=== PATIENT | male | born 1940 | race Caucasian/White ===

== ENCOUNTER 2019-06-19 16:47 | Inpatient (IN) | payer MEDICARE, BC ==
--- NOTE | 2019-06-19 17:36 | CT ---
[id number] CT/CT Head WO IV EXAM: CT Head WO IV CLINICAL DATA: TRAUMA COMPARISON: NO PREVIOUS SIMILAR EXAM IS AVAILABLE FOR COMPARISON. FINDINGS: There is no mass or mass effect. There is no hemorrhage or hydrocephalus. There are no extra-axial fluid collections. There are no sites of abnormal attenuation. IMPRESSION: NO PLAIN CT EVIDENCE OF ACUTE INTRACRANIAL PROCESS. Brett Proctor MD 06/19/19 [id number] Thank you for allowing us to participate in the care of your patient.
--- NOTE | 2019-06-19 17:37 | CT ---
[id number] CT/CT Cervical Spine WO IV Exam: CT Cervical Spine WO IV Clinical Data: TRAUMA COMPARISON: NO PREVIOUS SIMILAR EXAM IS AVAILABLE FINDINGS: No fracture or subluxation is seen There are degenerative changes There are changes suggestive of diffuse idiopathic skeletal hyperostosis The prevertebral soft tissues are unremarkable There is a sebaceous cyst at the level of the occiput IMPRESSION: NO FRACTURE OR SUBLUXATION Brett Proctor MD 06/19/19 [id number] Thank you for allowing us to participate in the care of your patient.
--- NOTE | 2019-06-19 17:40 | EDM.PDOC ---
ED HPI GENERAL MEDICAL PROBLEM - General Chief Complaint: General Stated Complaint: Frequent falls Time Seen by Provider: 06/19/19 17:10 Source of Information: Reports: EMS, Provider History Limitations: Reports: Other (profound dementia) - History of Present Illness INITIAL COMMENTS - FREE TEXT/NARRATIVE: 79 YO WM presents from the [place] by EMS secondary to frequent falls. NH reports pt fell twice over the last 3 days and there was some concern that patient my have hit his head and NH is questioning some change in his mental status. Pt has profound dementia and baseline mental status is difficult to obtain. GCS-15, pt is alert and oriented to self. Pt denies any pain at this time but upon transfer to ER bed he complained of some neck discomfort with rotation. Pt is afebrile, no cough or congestion, no nausea/vomiting. Pt denies chest pain or shortness of breath. Pt able to stand on transfer. Pt without facial droop, slurred speech or pronator drift. Onset: Unknown/Unsure Duration: Chronic, Recurring Location: Reports: Head, Neck Quality: Reports: Ache Severity: Mild Improves with: Reports: Rest Worsens with: Reports: Movement Associated Symptoms: Reports: No Other Symptoms, Weakness. Denies: Chest Pain, Cough, Fever/Chills, Nausea/Vomiting, Rash, Seizure, Shortness of Breath - Related Data Allergies Allergy/AdvReac Type Severity Reaction Status Date / Time No Known Allergies Allergy Verified 04/12/18 11:51 Home Meds: Home Meds Amitriptyline [Elavil] 50 mg PO BEDTIME 08/30/16 [History] Benazepril HCl [Lotensin] 40 mg PO DAILY 08/30/16 [History] Carvedilol [Coreg] 6.25 mg PO BID 08/30/16 [History] Citalopram [Celexa] 20 mg PO DAILY 08/30/16 [History] Cyanocobalamin (Vitamin B-12) [Vitamin B-12] 1,000 mcg PO DAILY 08/30/16 [ History] LORazepam 1 mg PO BEDTIME PRN 08/30/16 [History] amLODIPine [Norvasc] 5 mg PO DAILY 08/30/16 [History] buPROPion [Wellbutrin XL] 150 mg PO DAILY 08/30/16 [History] metFORMIN HCl [Metformin HCl] 500 mg PO BID 08/30/16 [History] Folic Acid 1 mg PO DAILY 01/25/17 [History] Betamethasone/Propylene Glyc [Betamethasone DP Aug 0.05%] 1 applic TOP BID 11/21 [History] Methotrexate 15 mg PO WEEKLY 11/21/17 [History] Simvastatin [Zocor] 40 mg PO BEDTIME 11/21/17 [History] Betamethasone/Propylene Glyc [Diprolene 0.05%] 1 applic TOP BID PRN 12/08/17 [ History] Clobetasol [Clobetasol 0.05%] 1 applic TOP BID PRN 12/08/17 [History] Cooke Tar [T-Gel] 1 applic TOP ASDIRECTED 12/08/17 [History] Ketoconazole [Nizoral 2% Crm] 1 applic TOP ASDIRECTED 12/08/17 [History] Zolpidem Tartrate [Ambien] 5 mg PO BEDTIME 12/08/17 [History] Donepezil [Aricept] 5 mg PO BEDTIME 04/12/18 [History] Nitrofurantoin Macrocrystal [Macrodantin] 100 mg PO BID 04/12/18 [History] Past Medical History - Past Health History Medical/Surgical History: Denies Medical/Surgical History HEENT History: Reports: Cataract, Impaired Vision Cardiovascular History: Reports: CAD, High Cholesterol, Hypertension Other Cardiovascular History: patient was told he had 2 mild heart attacks, but patient was not aware; no symptoms were felt. Respiratory History: Reports: SOB, Other (See Below) Other Respiratory History: wheezing Gastrointestinal History: Reports: Colon Polyp Genitourinary History: Reports: None Musculoskeletal History: Reports: Gout Neurological History: Reports: Other (See Below) Other Neuro History: insomnia Psychiatric History: Reports: Anxiety, Depression Endocrine/Metabolic History: Reports: Diabetes, Type II, Obesity/BMI 30+ Hematologic History: Reports: B12 Deficiency Immunologic History: Reports: None Oncologic (Cancer) History: Reports: None Dermatologic History: Reports: Psoriasis - Infectious Disease History Infectious Disease History: Reports: Mumps - Past Surgical History Head Surgeries/Procedures: Reports: None HEENT Surgical History: Reports: None, Cataract Surgery Cardiovascular Surgical History: Reports: Other (See Below) Other Cardiovascular Surgeries/Procedures: left heart cardiac cath. angiogram 2004 Male Surgical History: Reports: None Endocrine Surgical History: Reports: None Social & Family History - Family History Family Medical History: Noncontributory Cardiac: Reports: High Cholesterol, Hypertension Musculoskeletal: Reports: Arthritis Neurological: Reports: CVA - Caffeine Use Caffeine Use: Reports: Coffee, Tea Caffeine Use Comment: occassional tea, soda and coffee - Living Situation & Occupation Living situation: Reports: Alone Occupation: Retired ED ROS GENERAL - Review of Systems Review Of Systems: See Below Constitutional: Reports: Weakness HEENT: Reports: No Symptoms Respiratory: Reports: No Symptoms Cardiovascular: Reports: No Symptoms Endocrine: Reports: No Symptoms GI/Abdominal: Reports: No Symptoms : Reports: No Symptoms Musculoskeletal: Reports: No Symptoms Skin: Reports: No Symptoms Neurological: Reports: Weakness Psychiatric: Reports: No Symptoms Hematologic/Lymphatic: Reports: No Symptoms Immunologic: Reports: No Symptoms ED EXAM, GENERAL - Physical Exam Exam: See Below Exam Limited By: Other (profound dementia) General Appearance: Alert, WD/WN, No Apparent Distress Eye Exam: Bilateral Eye: EOMI, PERRL Nose: Normal Inspection, Normal Mucosa, No Blood Throat/Mouth: Normal Inspection, Normal Lips, Normal Teeth, Normal Gums, Normal Oropharynx, Normal Voice, No Airway Compromise Head: Atraumatic, Normocephalic Neck: Normal Inspection, Supple, Non-Tender, Other Respiratory/Chest: No Respiratory Distress, Lungs Clear, Normal Breath Sounds, No Accessory Muscle Use, Chest Non-Tender Cardiovascular: Normal Peripheral Pulses, Regular Rate, Rhythm, No Edema, No Gallop, No JVD, No Murmur, No Rub GI/Abdominal: Normal Bowel Sounds, Soft, Non-Tender, No Organomegaly, No Distention, No Abnormal Bruit, No Mass Extremities: Normal Inspection, Normal Range of Motion, Non-Tender, Normal Capillary Refill, No Pedal Edema Neurological: Alert, CN II-XII Intact, Normal Gait, Normal Reflexes, No Motor/ Sensory Deficits Psychiatric: Normal Affect, Normal Mood Skin Exam: Warm, Dry, Intact, Normal Color, No Rash Lymphatic: No Adenopathy EKG INTERPRETATION EKG Date: 06/19/19 Time: 17:25 Rhythm: NSR Rate (Beats/Min): 68 [place]: Normal P-Wave: Present QRS: Normal ST-T: Normal QT: Normal Course - Vital Signs Last Recorded V/S: Last Vital Signs Temp 36.2 C 06/19/19 17:35 Pulse 69 02/18/20 17:35 Resp 26 H 06/19/19 17:35 BP 110/41 L 06/19/19 17:35 Pulse Ox 93 L 06/19/19 17:35 - Orders/Labs/Meds Orders: Active Orders 24 hr Category Date Time Status EKG Documentation Completion [RC] ASDIRECTED Care 06/19/19 16:59 Active CULTURE BLOOD [BC] Stat Lab 06/19/19 18:00 Received CULTURE BLOOD [BC] Stat Lab 06/19/19 18:10 Received Blood Culture x2 Reflex Set [OM.PC] Stat Oth 06/19/19 17:55 Ordered EKG 12 Lead [EK] Routine Ther 06/19/19 16:56 Ordered Labs: Laboratory Tests 06/19/19 06/19/19 06/19/19 Range/Units 17:10 17:10 17:20 WBC 20.19 H (5.00-10.00) 10^3/uL RBC 3.58 L (4.50-6.00) 10^6/uL Hgb 11.5 L (13.0-17.0) g/dL Hct 34.6 L (40.0-52.0) % MCV 96.6 H (82.0-92.0) fL MCH 32.1 H (27.0-31.0) pg MCHC 33.2 (32.0-36.0) g/dL RDW 14.4 (11.5-14.5) % Plt Count 285 (150-400) 10^3/uL MPV 9.5 (7.4-10.4) fL Immature Gran % (Auto) 0.2 (0.0-5.0) % Neut % (Auto) 74.3 H (50.0-70.0) % Lymph % (Auto) 13.2 L (20.0-40.0) % Bertie % (Auto) 9.0 H (2.0-8.0) % Eos % (Auto) 3.1 H (1.0-3.0) % Baso % (Auto) 0.2 (0.0-1.0) % Immature Gran # (Auto) 0.04 (0.00-0.50) 10^3/uL Neut # (Auto) 15.00 H (2.50-7.00) 10^3/uL Lymph # (Auto) 2.67 (1.00-4.00) 10^3/uL Bertie # (Auto) 1.82 H (0.10-0.80) 10^3/uL Eos # (Auto) 0.62 H (0.10-0.30) 10^3/uL Baso # (Auto) 0.04 (0.00-0.10) 10^3/uL Sodium 147 H (136-145) mmol/L Potassium 4.3 (3.3-5.3) mmol/L Chloride 104 (98-115) mmol/L Carbon Dioxide 30.1 (21.0-32.0) mmol/L Anion Gap 17.2 H (5-15) mmol/L BUN 33 H (6-25) mg/dL Creatinine 0.83 (0.51-1.17) mg/dL Est Cr Clr Drug Dosing 72.07 mL/min Estimated GFR (MDRD) > 60 mL/min Glucose 108 H (75 - 99) mg/dL Lactic Acid 1.3 (0.4-2.0) mmol/L Calcium 8.5 L (8.7-10.3) mg/dL Total Bilirubin 1.3 H (0.2-1.0) mg/dL AST 20 (15-37) U/L ALT 19 (12-78) U/L Alkaline Phosphatase 107 (46-116) IU/L Creatine Kinase 48 (26-276) U/L CK-MB (CK-2) 1.40 (0.00-4.30) ng/mL Troponin I 0.06 (0.00-0.070) ng/mL Total Protein 6.2 L (6.4-8.2) g/dL Albumin 2.73 L (3.00-4.80) g/dL Specimen Type Urine Color (YELLOW) Urine Appearance (CLEAR) Urine pH (5.0-9.0) Ur Specific [place] (1.005-1.030) Urine Protein (NEGATIVE) mg/dL Urine Glucose (UA) (NEGATIVE) mg/dL Urine Ketones (NEGATIVE) mg/dL Urine Occult Blood (NEGATIVE) Urine Nitrite (NEGATIVE) Urine Bilirubin (NEGATIVE) Urine Urobilinogen (0.2-1.0) E.U./dL Ur Leukocyte Esterase (NEGATIVE) Urine RBC (0-5) /HPF Urine WBC (0-5) /HPF Urine Bacteria (NONE TO FEW) /HPF 06/19/19 Range/Units 17:58 WBC (5.00-10.00) 10^3/uL RBC (4.50-6.00) 10^6/uL Hgb (13.0-17.0) g/dL Hct (40.0-52.0) % MCV (82.0-92.0) fL MCH (27.0-31.0) pg MCHC (32.0-36.0) g/dL RDW (11.5-14.5) % Plt Count (150-400) 10^3/uL MPV (7.4-10.4) fL Immature Gran % (Auto) (0.0-5.0) % Neut % (Auto) (50.0-70.0) % Lymph % (Auto) (20.0-40.0) % Bertie % (Auto) (2.0-8.0) % Eos % (Auto) (1.0-3.0) % Baso % (Auto) (0.0-1.0) % Immature Gran # (Auto) (0.00-0.50) 10^3/uL Neut # (Auto) (2.50-7.00) 10^3/uL Lymph # (Auto) (1.00-4.00) 10^3/uL Bertie # (Auto) (0.10-0.80) 10^3/uL Eos # (Auto) (0.10-0.30) 10^3/uL Baso # (Auto) (0.00-0.10) 10^3/uL Sodium (136-145) mmol/L Potassium (3.3-5.3) mmol/L Chloride (98-115) mmol/L Carbon Dioxide (21.0-32.0) mmol/L Anion Gap (5-15) mmol/L BUN (6-25) mg/dL Creatinine (0.51-1.17) mg/dL Est Cr Clr Drug Dosing mL/min Estimated GFR (MDRD) mL/min Glucose (75 - 99) mg/dL Lactic Acid (0.4-2.0) mmol/L Calcium (8.7-10.3) mg/dL Total Bilirubin (0.2-1.0) mg/dL AST (15-37) U/L ALT (12-78) U/L Alkaline Phosphatase (46-116) IU/L Creatine Kinase (26-276) U/L CK-MB (CK-2) (0.00-4.30) ng/mL Troponin I (0.00-0.070) ng/mL Total Protein (6.4-8.2) g/dL Albumin (3.00-4.80) g/dL Specimen Type Urincc Urine Color Yellow (YELLOW) Urine Appearance Turbid H (CLEAR) Urine pH 6.0 (5.0-9.0) Ur Specific [place] 1.020 (1.005-1.030) Urine Protein 30 H (NEGATIVE) mg/dL Urine Glucose (UA) Negative (NEGATIVE) mg/dL Urine Ketones Negative (NEGATIVE) mg/dL Urine Occult Blood Trace-intact H (NEGATIVE) Urine Nitrite Negative (NEGATIVE) Urine Bilirubin Negative (NEGATIVE) Urine Urobilinogen 1.0 (0.2-1.0) E.U./dL Ur Leukocyte Esterase Negative (NEGATIVE) Urine RBC 0-5 (0-5) /HPF Urine WBC 0-5 (0-5) /HPF Urine Bacteria Occasional (NONE TO FEW) /HPF - Radiology Interpretation Free Text/Narrative:: CT head- NAD CT cervical- No fx or subluxation CXR- left 8th rib fracture; mild pleural reaction at left lung base which may represent pneumonia - Re-Assessments/Exams Free Text/Narrative Re-Assessment/Exam: 06/19/19 18:[address] Basihr who accepted patient. Will treat with gentle fluid hydration, pain control, and suspected LLL pneumonia. Instructed to continue home medications but hold ambien and lorazapam. Departure - Departure Time of Disposition: 18:36 Disposition: Admitted As Inpatient 64 Condition: Fair Clinical Impression: Frequent falls Rib fracture Qualifiers: Encounter type: initial encounter Rib fracture type: single rib Fracture type: closed Laterality: left Qualified Code(s): S22.32XA - Fracture of one rib, left side, initial encounter for closed fracture Pneumonia Qualifiers: Pneumonia type: due to unspecified organism Laterality: left Lung location: lower lobe of lung Qualified Code(s): J18.9 - Pneumonia, unspecified organism Leukocytosis Qualifiers: Leukocytosis type: unspecified Qualified Code(s): D72.829 - Elevated white blood cell count, unspecified - Discharge Information Referrals: Hemalatha Everett MD [Primary Care Provider] - Forms: ED Department Discharge Sepsis Event Note - Focused Exam Vital Signs: Vital Signs Temp Pulse Resp BP Pulse Ox 06/19/19 17:35 36.2 C 69 26 H 110/41 L 93 L Date Exam was Performed: 06/19/19 Time Exam was Performed: 18:38 - My Orders Last 24 Hours: My Active Orders 06/19/19 16:56 EKG 12 Lead [EK] Routine 06/19/19 16:59 EKG Documentation Completion [RC] ASDIRECTED 06/19/19 17:55 Blood Culture x2 Reflex Set [OM.PC] Stat 06/19/19 18:00 CULTURE BLOOD [BC] Stat 06/19/19 18:10 CULTURE BLOOD [BC] Stat - Assessment/Plan Last 24 Hours: My Active Orders 06/19/19 16:56 EKG 12 Lead [EK] Routine 06/19/19 16:59 EKG Documentation Completion [RC] ASDIRECTED 06/19/19 17:55 Blood Culture x2 Reflex Set [OM.PC] Stat 06/19/19 18:00 CULTURE BLOOD [BC] Stat 06/19/19 18:10 CULTURE BLOOD [BC] Stat Assessment:: 1. left 8th rib fracture from fall 2. leukocytosis without signs of sepsis 3. suspect LLL pneumonia Plan: 1. admit to medicine- Dr Bashir 2.
--- NOTE | 2019-06-19 17:43 | CR ---
[id number] RAD/RAD Chest PA And Lateral EXAM: RAD Chest PA And Lateral CLINICAL DATA: TRAUMA COMPARISON: NO PREVIOUS SIMILAR EXAM IS AVAILABLE. FINDINGS: There appears to mild pleural reaction at the left lung base There is no pneumothorax There is mild volume loss at the left lung base There appears to be a slightly displaced fracture of the left seventh rib posteriorly There is question of a recent fracture of the left eighth rib The cardiac silhouette is mildly prominent IMPRESSION: LOWER LEFT RIB FRACTURES VOLUME LOSS AND PLEURAL REACTION LEFT LUNG BASE NO PNEUMOTHORAX CONSIDER FURTHER STUDIES IF NEEDED Brett Proctor MD 06/19/19 0681 Thank you for allowing us to participate in the care of your patient.
[2019-06-19 17:48] LABS: ANION GAP 17.2 mmol/L (5-15); CHLORIDE,CL 104 mmol/L (98-115); SODIUM,NA 147 mmol/L (136-145)
[2019-06-19] MEDS ORDERED: Acetaminophen 325 MG Tab PO PRN ×2 (18:40→22:13)
[2019-06-19] MEDS ORDERED: Ondansetron 4 MG/2 ML SDV IV PRN (18:40)
[2019-06-19] MEDS ORDERED: Sodium Chloride 0.9% 10 ML Syringe FLUSH PRN (18:40)
[2019-06-19] MEDS ORDERED: cefTRIAXone 1 GM Vial IVPUSH SCH (18:45)
[2019-06-19] MEDS: Morphine 2 MG/ML Syringe IVPUSH PRN (20:18)
[2019-06-19] MEDS: Sodium Chloride 0.9% 1,000 ML IV SCH (20:42)
[2019-06-19] MEDS: Melatonin 3 MG Tab PO SCH (20:59)
[2019-06-19] MEDS ORDERED: Docusate Sodium 100 MG Cap PO PRN (22:13)
[2019-06-19] MEDS: Acetaminophen/HYDROcodone 325-5 MG Tab PO PRN (22:28)
[2019-06-19] MEDS ORDERED: [UNRECOGNIZED DRUG - OTHER] TP SCH (22:30)
[2019-06-19] MEDS: Albuterol/Ipratropium 3.0-0.5 MG/3 ML Neb Soln NEB SCH (22:39)
[2019-06-19] MEDS ORDERED: Morphine 2 MG/ML Syringe IVPUSH ONE (23:00)
[2019-06-19] MEDS ORDERED: LORazepam 0.5 MG Tab PO PRN (23:01)
[2019-06-20] MEDS: Morphine 2 MG/ML Syringe IVPUSH PRN ×3 (03:13→20:39)
[2019-06-20] MEDS: Albuterol/Ipratropium 3.0-0.5 MG/3 ML Neb Soln NEB SCH ×3 (05:54→17:23)
[2019-06-20] MEDS ORDERED: LORazepam 0.5 MG Tab PO PRN ×2 (07:52→18:19)
[2019-06-20] MEDS: Sodium Chloride 0.9% 1,000 ML IV SCH ×2 (08:04→21:56)
[2019-06-20 08:12] LABS: ANION GAP 14.3 mmol/L (5-15); CHLORIDE,CL 106 mmol/L (98-115); SODIUM,NA 144 mmol/L (136-145)
[2019-06-20] MEDS ORDERED: metFORMIN 500 MG Tab PO SCH (09:00)
[2019-06-20] MEDS ORDERED: amLODIPine 5 MG Tab PO SCH (09:00)
[2019-06-20] MEDS ORDERED: Carvedilol 12.5 MG Tab PO SCH (09:00)
[2019-06-20] MEDS ORDERED: LORazepam 2 MG/ML SDV IVPUSH ONE (09:49)
[2019-06-20] MEDS ORDERED: Bisacodyl 10 MG Supp RECTAL ONE (10:40)
[2019-06-20 10:51] LABS: HEMOGLOBIN A1C 5.9 % (4.3-5.7)
[2019-06-20] MEDS: Multivitamins with Minerals/Iron/Folic Acid/Lycopene Tab PO SCH (11:19)
[2019-06-20] MEDS: Folic Acid 1 MG Tab PO SCH (11:20)
[2019-06-20] MEDS: Cyanocobalamin (Vitamin B12) 500 MCG Tab PO SCH (11:20)
[2019-06-20] MEDS: Gabapentin 100 MG Cap PO SCH ×2 (11:20→20:55)
[2019-06-20] MEDS ORDERED: Bisacodyl 10 MG Supp RECTAL PRN (11:35)
[2019-06-20] MEDS: Lidocaine 5% 700 MG Patch TOP SCH (12:00)
--- NOTE | 2019-06-20 12:08 | PCM.HP.2 ---
H&P History of Present Illness - General Date of Service: 06/20/19 Admit Problem/Dx: Admission Diagnosis/Problem Admission Diagnosis/Problem Pneumonia Source of Information: Patient, Family, Senior Care Records, Old Records, Provider, RN, RN Notes Reviewed History Limitations: Reports: Altered Mental Status (dementia) - History of Present Illness Initial Comments - Free Text/Narative: 79yoM with hx notable for dementia who has most recently been residing at [facility] in [place], [place]. He has had increasing recurrent falls for the past many months. [facility] [facility] contacted [facility] provider LJ Veloz CNP, with report of generalized weakness and possible facial droop, which they were unsure if was a change from baseline. Falls were noted to be ongoing, with the most recent known on 06/18/19. He was transported to the [facility] ED for further evaluation. In the ED, he was noted to have a GCS = 15, but only oriented to self. He denied pain initially. Labs with CBC, CMP, troponin, lactate, and UA were notable for WBC 20 with 74% neutrophils, Na 147, and bilirubin 1.3, and otherwise stable or wnl. CT head and cervical spine were without abnormalities. CXR noted to have L 7th and 8th rib fractures and LLL pleural reaction. outbound call center representative physician was called for admission and began IVF with NS at 100cc/hr, IV antibiotics with vancomycin and ceftriaxone, and pain management with baseline Tylenol and [place] with prn morphine for severe breakthrough pain. This morning, he has been quite agitated, thought by nursing to partially be induced by construction occurring in the adjacent room. On rounds, he is oriented to self and intermittently answers yes/no questions appropriately, but otherwise is unable to provide reliable history. Nursing reports that he hasn't had a BM since 06/15/19. Discussed care with daughter who reports longstanding recurrent falls over the past several months as well as progressive memory loss and agitation which waxes and wanes throughout the day. She states that he has had a facial droop for at least the last week. She confirms recently completed POLST information desiring for nonaggressive measures and would prioritize comfort, but is willing to have pneumonia treated. Right Arm Pain Score (Numeric/FACES): 10 - Related Data Allergies/Adverse Reactions: Allergies Allergy/AdvReac Type Severity Reaction Status Date / Time No Known Allergies Allergy Verified 06/20/19 10:21 Home Medications: Home Meds Amitriptyline [Elavil] 25 mg PO BEDTIME 08/30/16 [History] Carvedilol [Coreg] 6.25 mg PO BID 08/30/16 [History] Cyanocobalamin (Vitamin B-12) [Vitamin B-12] 500 mcg PO DAILY 08/30/16 [History] LORazepam 0.5 mg PO BID PRN 08/30/16 [History] amLODIPine [Norvasc] 5 mg PO DAILY 08/30/16 [History] metFORMIN HCl [Metformin HCl] 500 mg PO DAILY 08/30/16 [History] Folic Acid 1 mg PO DAILY 01/25/17 [History] Methotrexate 15 mg PO WEEKLY 11/21/17 [History] Simvastatin [Zocor] 40 mg PO BEDTIME 11/21/17 [History] Donepezil [Aricept] 5 mg PO BEDTIME 04/12/18 [History] Docusate Sodium [Colace] 100 mg PO DAILY PRN 06/19/19 [History] Escitalopram Oxalate [Lexapro] 5 mg PO BEDTIME 06/19/19 [History] Gabapentin [Neurontin] 200 mg PO BID 06/19/19 [History] Hydrocodone/Acetaminophen [Hydrocodon-Acetaminophen 5-325] 1 each PO Q8H PRN [History] Lidocaine [Lidocaine 5%] 1 patch TOP Q12HR 06/19/19 [History] Multivitamin [Multiple Vitamins] 1 each PO DAILY 06/19/19 [History] Parab/Cet Alc/Stryl Alc/Pg/Sls [Cetaphil Daily Facial Cleanser] 1 ml TP ASDIRECTED 06/19/19 [History] Triamcinolone Acetonide [Triamcinolone Acetonide 0.1% Crm] 1 gm TOP BEDTIME [History] lisinopriL [Lisinopril] 20 mg PO DAILY 06/19/19 [History] Acetaminophen [Tylenol Arthritis] 650 mg PO Q8HR #180 tablet.er 06/21/19 [Rx] Cyclobenzaprine [Flexeril] 5 mg PO BID PRN #60 tab 06/21/19 [Rx] Levofloxacin [Levaquin] 750 mg PO DAILY #7 tablet 06/21/19 [Rx] Naloxegol Oxalate [Movantik] 25 mg PO DAILY #30 tablet 06/21/19 [Rx] Past Medical History - Past Health History Medical/Surgical History: Denies Medical/Surgical History HEENT History: Reports: Cataract, Impaired Vision Cardiovascular History: Reports: CAD, High Cholesterol, Hypertension Other Cardiovascular History: patient was told he had 2 mild heart attacks, but patient was not aware; no symptoms were felt. Respiratory History: Reports: SOB, Other (See Below) Other Respiratory History: wheezing Gastrointestinal History: Reports: Colon Polyp Genitourinary History: Reports: None Musculoskeletal History: Reports: Gout Neurological History: Reports: Other (See Below) Other Neuro History: insomnia Psychiatric History: Reports: Anxiety, Depression Endocrine/Metabolic History: Reports: Diabetes, Type II Hematologic History: Reports: B12 Deficiency Immunologic History: Reports: None Oncologic (Cancer) History: Reports: None Dermatologic History: Reports: Psoriasis - Infectious Disease History Infectious Disease History: Reports: Mumps - Past Surgical History Head Surgeries/Procedures: Reports: None HEENT Surgical History: Reports: None, Cataract Surgery Cardiovascular Surgical History: Reports: Other (See Below) Other Cardiovascular Surgeries/Procedures: left heart cardiac cath. angiogram 2004 Male Surgical History: Reports: None Endocrine Surgical History: Reports: None Social & Family History - Family History Cardiac: Reports: High Cholesterol, Hypertension Musculoskeletal: Reports: Arthritis Neurological: Reports: CVA - Tobacco Use Smoking Status *Q: Former Smoker Used Tobacco, but Quit: Yes Month/Year Tobacco Last Used: quit 30 years ago Second Hand Smoke Exposure: No - Caffeine Use Caffeine Use: Reports: Coffee, Soda Caffeine Use Comment: occassional tea, soda and coffee - Recreational Drug Use Recreational Drug Use: No - Living Situation & Occupation Living situation: Reports: Alone Occupation: Retired H&P Review of Systems - Review of Systems: Review Of Systems: Unable To Obtain (dementia) Reason Not Obtained: dementia Exam - Exam Exam: See Below - Vital Signs Vital Signs: Last Vital Signs Temp 35.7 C L 06/20/19 11:00 Pulse 88 06/20/19 11:00 Resp 48 H 06/20/19 11:00 BP 182/88 H 06/20/19 11:00 Pulse Ox 100 06/20/19 11:00 Weight: 82.372 kg - Exam Physical Exam Comments:: GENERAL: Elderly white male sitting in bedside chair appearing mildly uncomfortable initially, but upon discussion appeared to be comfortable in NAD. HEENT: Normocephalic, atraumatic. Conjunctiva clear. PERRL, EOMI. Nares patent without discharge. Mucous membranes dry, posterior pharynx unremarkable. NECK: Supple, no masses. CV: Regular rate and rhythm, no murmurs, rubs, or gallops. 2+ radial pulses. PULMONARY: Normal effort, faint rhonchi in LLL, no wheezes or rales. CHEST: Mild tenderness to palpation of L posterior-lateral ribs without crepitus or overlying skin changes. ABDOMEN: Hypoactive bowel sounds, soft, nontender, nondistended. EXTREMITIES: No edema, cyanosis, or clubbing. MUSCULOSKELETAL: Moves all extremities well. NEUROLOGICAL: No obvious deficits. Mild facial asymmetry at rest with L side of mouth more downgoing, but seemed to be improved at times during visit. DERMATOLOGIC: No rashes or suspicious lesions in exposed areas. PSYCHIATRIC: Alert, oriented only to self, intermittent mild agitation, occasional word salad. - Patient Data Lab Results Last 24 hrs: Laboratory Results - last 24 hr 06/19/19 06/19/19 06/19/19 Range/Units 17:10 17:10 17:20 WBC 20.19 H (5.00-10.00) 10^3/uL RBC 3.58 L (4.50-6.00) 10^6/uL Hgb 11.5 L (13.0-17.0) g/dL Hct 34.6 L (40.0-52.0) % MCV 96.6 H (82.0-92.0) fL MCH 32.1 H (27.0-31.0) pg MCHC 33.2 (32.0-36.0) g/dL RDW 14.4 (11.5-14.5) % Plt Count 285 (150-400) 10^3/uL MPV 9.5 (7.4-10.4) fL Immature Gran % (Auto) 0.2 (0.0-5.0) % Neut % (Auto) 74.3 H (50.0-70.0) % Lymph % (Auto) 13.2 L (20.0-40.0) % [place] % (Auto) 9.0 H (2.0-8.0) % Eos % (Auto) 3.1 H (1.0-3.0) % Baso % (Auto) 0.2 (0.0-1.0) % Immature Gran # (Auto) 0.04 (0.00-0.50) 10^3/uL Neut # (Auto) 15.00 H (2.50-7.00) 10^3/uL Lymph # (Auto) 2.67 (1.00-4.00) 10^3/uL [place] # (Auto) 1.82 H (0.10-0.80) 10^3/uL Eos # (Auto) 0.62 H (0.10-0.30) 10^3/uL Baso # (Auto) 0.04 (0.00-0.10) 10^3/uL Sodium 147 H (136-145) mmol/L Potassium 4.3 (3.3-5.3) mmol/L Chloride 104 (98-115) mmol/L Carbon Dioxide 30.1 (21.0-32.0) mmol/L Anion Gap 17.2 H (5-15) mmol/L BUN 33 H (6-25) mg/dL Creatinine 0.83 (0.51-1.17) mg/dL Est Cr Clr Drug Dosing 72.07 mL/min Estimated GFR (MDRD) > 60 mL/min Glucose 108 H (75 - 99) mg/dL Hemoglobin A1c (4.3-5.7) % Lactic Acid 1.3 (0.4-2.0) mmol/L Calcium 8.5 L (8.7-10.3) mg/dL Total Bilirubin 1.3 H (0.2-1.0) mg/dL AST 20 (15-37) U/L ALT 19 (12-78) U/L Alkaline Phosphatase 107 (46-116) IU/L Creatine Kinase 48 (26-276) U/L CK-MB (CK-2) 1.40 (0.00-4.30) ng/mL Troponin I 0.06 (0.00-0.070) ng/mL Total Protein 6.2 L (6.4-8.2) g/dL Albumin 2.73 L (3.00-4.80) g/dL Specimen Type Urine Color (YELLOW) Urine Appearance (CLEAR) Urine pH (5.0-9.0) Ur Specific [place] (1.005-1.030) Urine Protein (NEGATIVE) mg/dL Urine Glucose (UA) (NEGATIVE) mg/dL Urine Ketones (NEGATIVE) mg/dL Urine Occult Blood (NEGATIVE) Urine Nitrite (NEGATIVE) Urine Bilirubin (NEGATIVE) Urine Urobilinogen (0.2-1.0) E.U./dL Ur Leukocyte Esterase (NEGATIVE) Urine RBC (0-5) /HPF Urine WBC (0-5) /HPF Urine Bacteria (NONE TO FEW) /HPF 06/19/19 06/20/19 06/20/19 Range/Units 17:58 07:31 07:31 WBC 12.98 H (5.00-10.00) 10^3/uL RBC 3.47 L (4.50-6.00) 10^6/uL Hgb 11.0 L (13.0-17.0) g/dL Hct 33.2 L (40.0-52.0) % MCV 95.7 H (82.0-92.0) fL MCH 31.7 H (27.0-31.0) pg MCHC 33.1 (32.0-36.0) g/dL RDW 14.2 (11.5-14.5) % Plt Count 255 (150-400) 10^3/uL MPV 9.4 (7.4-10.4) fL Immature Gran % (Auto) 0.2 (0.0-5.0) % Neut % (Auto) 65.8 (50.0-70.0) % Lymph % (Auto) 17.6 L (20.0-40.0) % [place] % (Auto) 10.7 H (2.0-8.0) % Eos % (Auto) 5.5 H (1.0-3.0) % Baso % (Auto) 0.2 (0.0-1.0) % Immature Gran # (Auto) 0.03 (0.00-0.50) 10^3/uL Neut # (Auto) 8.54 H (2.50-7.00) 10^3/uL Lymph # (Auto) 2.28 (1.00-4.00) 10^3/uL [place] # (Auto) 1.39 H (0.10-0.80) 10^3/uL Eos # (Auto) 0.71 H (0.10-0.30) 10^3/uL Baso # (Auto) 0.03 (0.00-0.10) 10^3/uL Sodium 144 (136-145) mmol/L Potassium 3.7 (3.3-5.3) mmol/L Chloride 106 (98-115) mmol/L Carbon Dioxide 27.4 (21.0-32.0) mmol/L Anion Gap 14.3 (5-15) mmol/L BUN 26 H (6-25) mg/dL Creatinine 0.66 (0.51-1.17) mg/dL Est Cr Clr Drug Dosing 90.64 mL/min Estimated GFR (MDRD) > 60 mL/min Glucose 105 H (75 - 99) mg/dL Hemoglobin A1c (4.3-5.7) % Lactic Acid (0.4-2.0) mmol/L Calcium 8.4 L (8.7-10.3) mg/dL Total Bilirubin 1.4 H (0.2-1.0) mg/dL AST 16 (15-37) U/L ALT 18 (12-78) U/L Alkaline Phosphatase 103 (46-116) IU/L Creatine Kinase (26-276) U/L CK-MB (CK-2) (0.00-4.30) ng/mL Troponin I (0.00-0.070) ng/mL Total Protein 5.9 L (6.4-8.2) g/dL Albumin 2.59 L (3.00-4.80) g/dL Specimen Type Urincc Urine Color Yellow (YELLOW) Urine Appearance Turbid H (CLEAR) Urine pH 6.0 (5.0-9.0) Ur Specific [place] 1.020 (1.005-1.030) Urine Protein 30 H (NEGATIVE) mg/dL Urine Glucose (UA) Negative (NEGATIVE) mg/dL Urine Ketones Negative (NEGATIVE) mg/dL Urine Occult Blood Trace-intact H (NEGATIVE) Urine Nitrite Negative (NEGATIVE) Urine Bilirubin Negative (NEGATIVE) Urine Urobilinogen 1.0 (0.2-1.0) E.U./dL Ur Leukocyte Esterase Negative (NEGATIVE) Urine RBC 0-5 (0-5) /HPF Urine WBC 0-5 (0-5) /HPF Urine Bacteria Occasional (NONE TO FEW) /HPF 06/20/19 Range/Units 07:31 WBC (5.00-10.00) 10^3/uL RBC (4.50-6.00) 10^6/uL Hgb (13.0-17.0) g/dL Hct (40.0-52.0) % MCV (82.0-92.0) fL MCH (27.0-31.0) pg MCHC (32.0-36.0) g/dL RDW (11.5-14.5) % Plt Count (150-400) 10^3/uL MPV (7.4-10.4) fL Immature Gran % (Auto) (0.0-5.0) % Neut % (Auto) (50.0-70.0) % Lymph % (Auto) (20.0-40.0) % [place] % (Auto) (2.0-8.0) % Eos % (Auto) (1.0-3.0) % Baso % (Auto) (0.0-1.0) % Immature Gran # (Auto) (0.00-0.50) 10^3/uL Neut # (Auto) (2.50-7.00) 10^3/uL Lymph # (Auto) (1.00-4.00) 10^3/uL [place] # (Auto) (0.10-0.80) 10^3/uL Eos # (Auto) (0.10-0.30) 10^3/uL Baso # (Auto) (0.00-0.10) 10^3/uL Sodium (136-145) mmol/L Potassium (3.3-5.3) mmol/L Chloride (98-115) mmol/L Carbon Dioxide (21.0-32.0) mmol/L Anion Gap (5-15) mmol/L BUN (6-25) mg/dL Creatinine (0.51-1.17) mg/dL Est Cr Clr Drug Dosing mL/min Estimated GFR (MDRD) mL/min Glucose (75 - 99) mg/dL Hemoglobin A1c 5.9 H (4.3-5.7) % Lactic Acid (0.4-2.0) mmol/L Calcium (8.7-10.3) mg/dL Total Bilirubin (0.2-1.0) mg/dL AST (15-37) U/L ALT (12-78) U/L Alkaline Phosphatase (46-116) IU/L Creatine Kinase (26-276) U/L CK-MB (CK-2) (0.00-4.30) ng/mL Troponin I (0.00-0.070) ng/mL Total Protein (6.4-8.2) g/dL Albumin (3.00-4.80) g/dL Specimen Type Urine Color (YELLOW) Urine Appearance (CLEAR) Urine pH (5.0-9.0) Ur Specific [place] (1.005-1.030) Urine Protein (NEGATIVE) mg/dL Urine Glucose (UA) (NEGATIVE) mg/dL Urine Ketones (NEGATIVE) mg/dL Urine Occult Blood (NEGATIVE) Urine Nitrite (NEGATIVE) Urine Bilirubin (NEGATIVE) Urine Urobilinogen (0.2-1.0) E.U./dL Ur Leukocyte Esterase (NEGATIVE) Urine RBC (0-5) /HPF Urine WBC (0-5) /HPF Urine Bacteria (NONE TO FEW) /HPF Result Diagrams: 06/21/19 07:15 06/21/19 07:15 Sepsis Event Note - Evaluation Sepsis Screening Result: No Definite Risk - Focused Exam Vital Signs: Vital Signs Temp Pulse Resp BP BP Pulse Ox Pulse Ox 06/20/19 11:00 35.7 C L 88 48 H 182/88 H 100 06/20/19 08:45 06/20/19 08:30 95 06/20/19 08:06 24 H 116/65 95 06/20/19 07:45 97 06/20/19 06:17 36.3 C 62 20 113/56 L 95 06/20/19 05:54 64 97 06/20/19 05:52 97 06/20/19 03:00 36.2 C 68 20 114/58 L 95 Pulse Ox 06/20/19 11:00 06/20/19 08:45 95 06/20/19 08:30 06/20/19 08:06 06/20/19 07:45 06/20/19 06:17 06/20/19 05:54 06/20/19 05:52 06/20/19 03:00 Date Exam was Performed: 06/21/19 Time Exam was Performed: 15:27 Problem List Initiated/Reviewed/Updated: Yes Orders Last 24hrs: Active Orders 24 hr Category Date Time Status Patient Status [ADT] Routine ADT 06/19/19 18:40 Active Incentive Spirometry [RT Incentive Spirometry] [RC] Care 06/19/19 18:47 Active ASDIRECTED Orthostatic Vital Signs [RC] ASDIRECTED Care 06/20/19 09:40 Active Oxygen Therapy [RC] PRN Care 06/19/19 18:40 Active Pulse Oximetry [RC] PRN Care 06/19/19 18:40 Active RT Aerosol Therapy [RC] ASDIRECTED Care 06/19/19 18:44 Active Up With Assistance [RC] ASDIRECTED Care 06/19/19 18:40 Active VTE/DVT Education [RC] PER UNIT ROUTINE Care 06/19/19 18:40 Active Vital Signs [RC] Q4H Care 06/19/19 18:40 Active Consult to Speech Language Pathology [[employer] Evaluation Cons 06/20/19 09:50 Active and Treatment] [CONS] Routine [place] [employer] Diet [DIET] Diet 06/19/19 Dinner Active CBC WITH AUTO DIFF [HEME] AM Lab 06/21/19 05:11 Ordered COMPREHENSIVE METABOLIC PN,CMP [CHEM] AM Lab 06/21/19 05:11 Ordered CULTURE BLOOD [BC] Stat Lab 06/19/19 18:00 Received CULTURE BLOOD [BC] Stat Lab 06/19/19 18:10 Received CULTURE SPUTUM + SMEAR [RM] Stat Lab 06/19/19 18:40 Ordered Acetaminophen [Tylenol] Med 06/19/19 18:40 Active 650 mg PO Q4H PRN Acetaminophen/HYDROcodone [[place] 325-5 MG] Med 06/19/19 22:14 Active 1 tab PO Q8H PRN Albuterol/Ipratropium [DuoNeb 3.0-0.5 MG/3 ML] Med 06/19/19 23:00 Active 3 ml NEB Q6HRRT Amitriptyline [Elavil] Med 06/20/19 21:00 Active 25 mg PO BEDTIME Cyanocobalamin (Vitamin B12) [Vitamin B12] Med 06/20/19 09:00 Active 500 mcg PO DAILY Docusate Sodium [Colace] Med 06/19/19 22:13 Active 100 mg PO DAILY PRN Donepezil [Aricept] Med 06/20/19 21:00 Active 5 mg PO BEDTIME Escitalopram [Lexapro] Med 06/20/19 21:00 Active 5 mg PO BEDTIME FA/Lycopene/Lut/MV,Ca,Iron,Min [Centrum] Med 06/20/19 09:00 Active 1 tab PO DAILY Folic Acid Med 06/20/19 09:00 Active 1 mg PO DAILY Gabapentin [Neurontin] Med 06/20/19 09:00 Active 200 mg PO BID Lidocaine 5% [Lidoderm 5%] Med 06/20/19 09:00 Active 700 mg TOP DAILY Melatonin Med 06/19/19 21:00 Active 6 mg PO BEDTIME Methotrexate Med 06/22/19 12:00 Active 15 mg PO Fr@1200 Morphine Med 06/19/19 18:40 Active 2 mg IVPUSH Q2H PRN Ondansetron [Zofran] Med 06/19/19 18:40 Active 4 mg IV Q6H PRN Remove Patch Med 06/20/19 21:00 Active 1 ea TRDERM 2100 Simvastatin [Zocor] Med 06/20/19 21:00 Active 40 mg PO BEDTIME Sodium Chloride 0.9% [Normal Saline] 1,000 ml Med 06/19/19 18:45 Active IV ASDIRECTED Triamcinolone Acetonide [Triamcinolone Acetonide 0.1% Med 06/20/19 21:00 Active Crm] 1 gm TOP BEDTIME bisacodyL [Dulcolax] Med 06/20/19 11:35 Ordered 10 mg RECTAL DAILY PRN bisacodyL [Dulcolax] Med 06/20/19 10:40 Once 10 mg RECTAL ONETIME ONE carvediloL [Coreg] Med 06/20/19 09:00 Active 6.25 mg PO BID cefTRIAXone [Rocephin] Med 06/19/19 18:45 Active 1 gm IVPUSH Q24H polyethylene glycoL 3350 [MiraLAX] Med 06/21/19 09:00 Ordered 17 gm PO DAILY Blood Culture x2 Reflex Set [OM.PC] Stat Oth 06/19/19 17:55 Ordered Peripheral IV Insertion Adult [OM.PC] Routine Oth 06/19/19 18:40 Ordered Resuscitation Status Routine Resus Stat 06/19/19 18:40 Ordered EKG 12 Lead [EK] Routine Ther 06/19/19 16:56 Stop Req Medication Orders Acetaminophen (Tylenol) 650 mg PO Q4H PRN PRN Reason: Pain (Mild 1-3)/fever Last Admin: 06/20/19 07:22 Dose: 650 mg Hydrocodone Bitart/Acetaminophen ([place] 325-5 Mg) 1 tab PO Q8H PRN PRN Reason: Pain Last Admin: 06/19/19 22:28 Dose: 1 tab Albuterol/Ipratropium (Duoneb 3.0-0.5 Mg/3 Ml) 3 ml NEB Q6HRRT [facility] Last Admin: 06/20/19 05:54 Dose: 3 ml Admin: 06/19/19 22:39 Dose: 3 ml Amitriptyline HCl (Elavil) 25 mg PO BEDTIME [facility] Bisacodyl (Dulcolax) 10 mg RECTAL ONETIME ONE Stop: 06/20/19 10:41 Bisacodyl (Dulcolax) 10 mg RECTAL DAILY PRN PRN Reason: Constipation Carvedilol (Coreg) 6.25 mg PO BID [facility] Last Admin: 06/20/19 11:19 Dose: Ceftriaxone Sodium (Rocephin) 1 gm IVPUSH Q24H [facility] Last Admin: 06/19/19 20:45 Dose: 1 gm Cyanocobalamin (Vitamin B12) 500 mcg PO DAILY [facility] Last Admin: 06/20/19 11:20 Dose: Docusate Sodium (Colace) 100 mg PO DAILY PRN PRN Reason: Constipation Last Admin: 06/20/19 00:09 Dose: 100 mg Donepezil HCl (Aricept) 5 mg PO BEDTIME [facility] Escitalopram Oxalate (Lexapro) 5 mg PO BEDTIME [facility] Folic Acid (Folic Acid) 1 mg PO DAILY [facility] Last Admin: 06/20/19 11:20 Dose: Gabapentin (Neurontin) 200 mg PO BID [facility] Last Admin: 06/20/19 11:20 Dose: Sodium Chloride (Normal Saline) 1,000 mls @ 100 mls/hr IV ASDIRECTED [facility] Last Admin: 06/20/19 08:04 Dose: 100 mls/hr Infusion: 06/20/19 06:42 Dose: 100 mls/hr Admin: 06/19/19 20:42 Dose: 100 mls/hr Lidocaine (Lidoderm 5%) 700 mg TOP DAILY [facility] Last Admin: 06/20/19 12:00 Dose: 700 mg Melatonin (Melatonin) 6 mg PO BEDTIME [facility] Last Admin: 06/19/19 20:59 Dose: 6 mg Methotrexate (Methotrexate) 15 mg PO Fr@1200 [facility] Miscellaneous Information (Remove Patch) 1 ea TRDERM 2100 [facility] Morphine Sulfate (Morphine) 2 mg IVPUSH Q2H PRN PRN Reason: Pain (severe 7-10) Last Admin: 06/20/19 08:06 Dose: 2 mg Admin: 06/20/19 03:13 Dose: 2 mg Admin: 06/19/19 20:18 Dose: 2 mg Multivitamins/Minerals (Centrum) 1 tab PO DAILY [facility] Last Admin: 06/20/19 11:19 Dose: Ondansetron HCl (Zofran) 4 mg IV Q6H PRN PRN Reason: Nausea/Vomiting Polyethylene Glycol (Miralax) 17 gm PO DAILY [facility] Simvastatin (Zocor) 40 mg PO BEDTIME [facility] Triamcinolone Acetonide (Triamcinolone Acetonide 0.1% Crm) 1 gm TOP BEDTIME [facility] Assessment/Plan Comment:: HPI summary: 79yoM with hx notable for dementia who has most recently been residing at [facility] in [place], [place]. He has had increasing recurrent falls for the past many months. [facility] contacted [facility] provider LJ Veloz CNP, with report of generalized weakness and possible facial droop, which they were unsure if was a change from baseline. Falls were noted to be ongoing, with the most recent known on 06/18/19. He was transported to the [facility] ED for further evaluation. ED course: In the ED, he was noted to have a GCS = 15, but only oriented to self. He denied pain initially. Labs with CBC, CMP, troponin, lactate, and UA were notable for WBC 20 with 74% neutrophils, Na 147, and bilirubin 1.3, and otherwise stable or wnl. CT head and cervical spine were without abnormalities. CXR noted to have L 7th and 8th rib fractures and LLL pleural reaction. outbound call center representative physician was called for admission and began IVF with NS at 100cc/hr, IV antibiotics with vancomycin and ceftriaxone, and pain management with baseline Tylenol and [place] with prn morphine for severe breakthrough pain. Hospital course: This morning, he has been quite agitated, thought by nursing to partially be induced by construction occurring in the adjacent room. On rounds, he is oriented to self and intermittently answers yes/no questions appropriately, but otherwise is unable to provide reliable history. Nursing reports that he hasn't had a BM since 06/15/19. Discussed care with daughter who reports longstanding recurrent falls over the past several months as well as progressive memory loss and agitation which waxes and wanes throughout the day. She states that he has had a facial droop for at least the last week. She confirms recently completed POLST information desiring for nonaggressive measures and would prioritize comfort, but is willing to have pneumonia treated. Hospitalization problems and plan: # Pneumonia, LLL, healthcare associated, suspect bacterial etiology, possible aspiration # Leukocytosis, improving # Mild clinical dehydration # Hypernatremia, resolved - Procalcitonin to guide future de-escalation - Repeat CBC in AM - Await blood culture (no sputum obtained) - Discontinue ceftriaxone and start Zosyn given concern for possible aspiration and healthcare associated status - Continue vancomycin, dosing per pharmacy - Continue DuoNebs prn - NS @ 100cc/hr - Incentive spirometry q1h while awake # Dysphagia - Speech therapy evaluation - Thickened liquids and soft diet awaiting speech therapy evaluation # L 7th and 8th rib fractures # Chronic back pain - Continue Tylenol and [place] prn, which he is on chronically as outpatient - Continue lidocaine patch, which he is on chronically as outpatient - Morphine IV prn for severe breakthrough pain # Dementia with behavioral disturbance # Anxiety # Insomnia # Frequent falls - Continue donepezil 5mg daily - Continue escitalopram 5mg daily - Melatonin 6mg qHS, which was started on the first night of admission - Hold lorazepam 0.5mg BID prn - Hold gabapentin 200mg BID (started 06/01/19) - Hold amitriptyline 25mg qHS (recently decreased from 50mg when gabapentin and sertraline started) # Constipation - Bisacodyl suppository now - Magnesium citrate and enema if no results with suppository - Start Miralax daily - Continue docusate prn, which he is on chronically as outpatient Chronic, stable conditions: # HTN: Continue carvedilol 6.25mg BID. Holding lisinopril and amlodipine given non-elevated BPs and consideration of orthostasis as playing a role, as detailed above. # Hyperbilirubinemia: Chronic, mild. Recheck CMP tomorrow. # DMT2: Holding metformin 500mg daily, which can likely also be stopped at discharge given A1c 5.9% obtained today. # HLD: Continue simvastatin 40mg. # Hx alcohol abuse: Continue MV, B12, folate. # Psoriasis: Methotrexate 15mg weekly on Fridays. Hospitalization details: # FEN: NS @ 100 cc/hr. Electrolytes normal. Thickened consistency diet while awaiting speech therapy evaluation. # PPX: Holding DVT ppx in the setting of frequent falls and POA/daughter's wishes for minimal interventions. # Code status: DNR/DNI/Comfort measures only, documented on POLST and confirmed with POA/daughter, Angellayamilet Faye, over the phone on 06/20/19. # Emergency contact: POA/daughter, Angella Faye, who was updated by myself after rounds on 06/20/19. # Disposition: Admit to inpatient status for further monitoring and management of conditions above, for which hospital stay of 2-4 midnights anticipated. Anticipate discharge back to [facility] when clinically improved. Highly consider hospice/palliative care status at discharge given future treatment and intervention wishes as detailed above.
[2019-06-20] MEDS: Acetaminophen/HYDROcodone 325-5 MG Tab PO PRN (15:42)
[2019-06-20] MEDS: Piperacillin/Tazobactam/Dext 3.375 GM in Premix Bag 1 BAG IV SCH ×2 (15:42→21:05)
[2019-06-20] MEDS: Carvedilol 6.25 MG Tab PO SCH (20:54)
[2019-06-20] MEDS: Melatonin 3 MG Tab PO SCH (20:56)
[2019-06-20] MEDS ORDERED: Triamcinolone Acetonide 0.1% Crm 15 GM Tube TOP SCH (21:00)
[2019-06-20] MEDS ORDERED: Escitalopram 10 MG Tab PO SCH (21:00)
[2019-06-20] MEDS ORDERED: Simvastatin 20 MG Tab PO SCH (21:00)
[2019-06-20] MEDS ORDERED: Amitriptyline 25 MG Tab PO SCH (21:00)
[2019-06-20] MEDS ORDERED: Donepezil 10 MG Tab PO SCH (21:00)
[2019-06-21] MEDS: Albuterol/Ipratropium 3.0-0.5 MG/3 ML Neb Soln NEB SCH ×3 (01:27→11:40)
[2019-06-21] MEDS: Piperacillin/Tazobactam/Dext 3.375 GM in Premix Bag 1 BAG IV SCH ×2 (03:02→08:40)
[2019-06-21] MEDS: Morphine 2 MG/ML Syringe IVPUSH PRN ×4 (03:21→12:25)
[2019-06-21 07:49] LABS: ANION GAP 10.7 mmol/L (5-15); CHLORIDE,CL 106 mmol/L (98-115); SODIUM,NA 141 mmol/L (136-145)
[2019-06-21] MEDS: Folic Acid 1 MG Tab PO SCH (08:35)
[2019-06-21] MEDS: Cyanocobalamin (Vitamin B12) 500 MCG Tab PO SCH (08:36)
[2019-06-21] MEDS: Carvedilol 6.25 MG Tab PO SCH (08:36)
[2019-06-21] MEDS: Multivitamins with Minerals/Iron/Folic Acid/Lycopene Tab PO SCH (08:36)
[2019-06-21] MEDS: Lidocaine 5% 700 MG Patch TOP SCH (08:44)
[2019-06-21] MEDS ORDERED: Polyethylene Glycol 3350 Powder 17 GM Packet PO SCH (09:00)
[2019-06-21] MEDS: Acetaminophen/HYDROcodone 325-5 MG Tab PO PRN (09:14)
[2019-06-21 11:20] VITALS: BP 138/68; PULSE 65
--- NOTE | 2019-06-21 12:10 | PCM.DCSUM1 ---
Discharge Summary - Hospital Course Diagnosis: Stroke: No - Discharge Data Discharge Date: 06/21/19 Discharge Disposition: DC/Tfer to SNF 03 Condition: Fair - Referral to Home Health Primary Care Physician: Hemalatha Everett MD - Patient Summary/Data Consults: Consultations 06/20/19 09:50 Consult to Speech Language Pathology [CONTENT WRITER Evaluation and Treatment] [CONS] Routine - Patient Instructions Diet: Usual Diet as Tolerated Activity: As Tolerated Driving: Do Not Drive Showering/Bathing: May Shower Notify Provider of: Increased Pain - Discharge Plan *PRESCRIPTION DRUG MONITORING PROGRAM REVIEWED*: Not Applicable *COPY OF PRESCRIPTION DRUG MONITORING REPORT IN PATIENT MATTHIAS: Not Applicable ( Reviewed in epic) Prescriptions/Med Rec: Acetaminophen [Tylenol Arthritis] 650 mg PO Q8HR #180 tablet.er Cyclobenzaprine [Flexeril] 5 mg PO BID PRN #60 tab PRN Reason: back spasms Levofloxacin [Levaquin] 750 mg PO DAILY #7 tablet Naloxegol Oxalate [Movantik] 25 mg PO DAILY #30 tablet Home Medications: Home Meds Amitriptyline [Elavil] 25 mg PO BEDTIME 08/30/16 [History] Carvedilol [Coreg] 6.25 mg PO BID 08/30/16 [History] Cyanocobalamin (Vitamin B-12) [Vitamin B-12] 500 mcg PO DAILY 08/30/16 [History] LORazepam 0.5 mg PO BID PRN 08/30/16 [History] amLODIPine [Norvasc] 5 mg PO DAILY 08/30/16 [History] metFORMIN HCl [Metformin HCl] 500 mg PO DAILY 08/30/16 [History] Folic Acid 1 mg PO DAILY 01/25/17 [History] Methotrexate 15 mg PO WEEKLY 11/21/17 [History] Simvastatin [Zocor] 40 mg PO BEDTIME 11/21/17 [History] Donepezil [Aricept] 5 mg PO BEDTIME 04/12/18 [History] Docusate Sodium [Colace] 100 mg PO DAILY PRN 06/19/19 [History] Escitalopram Oxalate [Lexapro] 5 mg PO BEDTIME 06/19/19 [History] Gabapentin [Neurontin] 200 mg PO BID 06/19/19 [History] Hydrocodone/Acetaminophen [Hydrocodon-Acetaminophen 5-325] 1 each PO Q8H PRN [History] Lidocaine [Lidocaine 5%] 1 patch TOP Q12HR 06/19/19 [History] Multivitamin [Multiple Vitamins] 1 each PO DAILY 06/19/19 [History] Parab/Cet Alc/Stryl Alc/Pg/Sls [Cetaphil Daily Facial Cleanser] 1 ml TP ASDIRECTED 06/19/19 [History] Triamcinolone Acetonide [Triamcinolone Acetonide 0.1% Crm] 1 gm TOP BEDTIME [History] lisinopriL [Lisinopril] 20 mg PO DAILY 06/19/19 [History] Acetaminophen [Tylenol Arthritis] 650 mg PO Q8HR #180 tablet.er 06/21/19 [Rx] Cyclobenzaprine [Flexeril] 5 mg PO BID PRN #60 tab 06/21/19 [Rx] Levofloxacin [Levaquin] 750 mg PO DAILY #7 tablet 06/21/19 [Rx] Naloxegol Oxalate [Movantik] 25 mg PO DAILY #30 tablet 06/21/19 [Rx] - Discharge Summary/Plan Comment DC Time >30 min.: Yes Discharge Summary/Plan Comment: Final diagnosis, Pneumonia, LLL, HCAP, suspect bacterial etiology, possible aspiration Mild clinical dehydration Hypernatremia, resolved Dysphagia Constipation, resolved, L 7th and 8th rib fractures Chronic back pain, compression fracture History summary This 79 gentleman significant dementia who been recently residing at [facility] in [place], [place]. He has had increasing frequent and recurring falls for several months and the on-call provider was contacted report of generalized weakness and possible facial droop, which they were unsure if was a change from baseline along with ongoing falls. He was transported to the [facility] ED for further evaluation. In the ED, he was noted to have a GCS = 15, but only oriented to self. He denied pain initially. Labs with CBC, CMP, troponin, lactate, and UA were notable for WBC 20 with 74% neutrophils, Na 147, and bilirubin 1.3, and otherwise stable or wnl. CT head and cervical spine were without abnormalities. CXR noted to have L 7th and 8th rib fractures and LLL pleural reaction. jet operator physician was called for admission and began IVF with NS at 100cc/hr, IV antibiotics with vancomycin and ceftriaxone, and pain management with baseline Tylenol and [place] with prn morphine for severe breakthrough pain. Hospital course Patient had multiple episodes of agitation which was thought to be a combination of constipation and pain related--seem to improve with morphine however not [place]. Nursing reported that he hasn't had a BM since 06/15/19. Rounding provider discussed care with daughter who reported longstanding recurrent falls over the past several months as well as progressive memory loss and agitation which waxes and wanes throughout the day. She states that he has had a facial droop for at least the last week. She confirms recently completed POLST information desiring for non-aggressive measures and would prioritize comfort, but was willing to have pneumonia treated. Given laxatives with large bowel movements. He was given antibiotics for his pneumonia, blood cultures no growth in 5 days, the white count of 20,000 on admission and was trending to near normalization on discharge with no neutrophilia on discharge. He did have a slightly elevated sodium level but this was corrected with gentle fluid hydration. Metformin was held on admission. We continue with multivitamins, B12 and folate due to history of alcohol abuse. He was given thickened consistency diet due to concerns of aspiration. Due to frequent falls DVT prophylaxis was held. Disposition discharge back to [facility] Speech therapy evaluation, Thickened liquids and soft diet awaiting speech therapy evaluation Medication adjustments upon discharge Movantik 25 mg p.o. daily scheduled Tylenol 650 mg p.o. every 8 hours scheduled, changed from PRN, do not exceed 4 g per 24 hours OTC Aspercreme 3 times daily to lower back Levaquin 750 mg p.o. daily x7 days Flexeril 5 mg p.o. twice daily Recommend discontinuation of metformin Recommendations on next provider rounds, --hospice placement --Assess bowel regimen - General Info Date of Service: 06/21/19 Subjective Update: Due to confusion and dementia, complete review of systems unobtainable Functional Status: Reports: Pain Controlled, Tolerating Diet. Denies: Ambulating, Incentive Spirometry - Review of Systems General: Denies: Fever - Patient Data Vitals - Most Recent: Last Vital Signs Temp 96.6 F L 06/21/19 11:00 Pulse 65 06/21/19 11:00 Resp 24 H 06/21/19 11:00 BP 138/68 06/21/19 11:00 Pulse Ox 97 06/21/19 11:00 Weight - Most Recent: 181 lb 9.6 oz I&O - Last 24 hours: Intake & Output 06/20/19 06/21/19 06/21/19 22:59 06:59 14:59 Intake Total 804 868 Output Total 200 300 Balance 604 568 Lab Results - Last 24 hrs: Laboratory Results - last 24 hr 06/21/19 06/21/19 Range/Units 07:15 07:15 WBC 10.27 H (5.00-10.00) 10^3/uL RBC 3.26 L (4.50-6.00) 10^6/uL Hgb 10.3 L (13.0-17.0) g/dL Hct 31.1 L (40.0-52.0) % MCV 95.4 H (82.0-92.0) fL MCH 31.6 H (27.0-31.0) pg MCHC 33.1 (32.0-36.0) g/dL RDW 14.2 (11.5-14.5) % Plt Count 244 (150-400) 10^3/uL MPV 9.1 (7.4-10.4) fL Immature Gran % (Auto) 0.4 (0.0-5.0) % Neut % (Auto) 66.1 (50.0-70.0) % Lymph % (Auto) 16.7 L (20.0-40.0) % [place] % (Auto) 10.8 H (2.0-8.0) % Eos % (Auto) 5.7 H (1.0-3.0) % Baso % (Auto) 0.3 (0.0-1.0) % Immature Gran # (Auto) 0.04 (0.00-0.50) 10^3/uL Neut # (Auto) 6.78 (2.50-7.00) 10^3/uL Lymph # (Auto) 1.72 (1.00-4.00) 10^3/uL [place] # (Auto) 1.11 H (0.10-0.80) 10^3/uL Eos # (Auto) 0.59 H (0.10-0.30) 10^3/uL Baso # (Auto) 0.03 (0.00-0.10) 10^3/uL Sodium 141 (136-145) mmol/L Potassium 3.7 (3.3-5.3) mmol/L Chloride 106 (98-115) mmol/L Carbon Dioxide 28.0 (21.0-32.0) mmol/L Anion Gap 10.7 (5-15) mmol/L BUN 14 (6-25) mg/dL Creatinine 0.66 (0.51-1.17) mg/dL Est Cr Clr Drug Dosing 90.64 mL/min Estimated GFR (MDRD) > 60 mL/min Glucose 90 (75 - 99) mg/dL Calcium 8.1 L (8.7-10.3) mg/dL Total Bilirubin 1.6 H (0.2-1.0) mg/dL AST 17 (15-37) U/L ALT 16 (12-78) U/L Alkaline Phosphatase 88 (46-116) IU/L Total Protein 5.3 L (6.4-8.2) g/dL Albumin 2.27 L (3.00-4.80) g/dL MIKEY Results - Last 24 hrs: Microbiology 06/19/19 18:00 Aerobic Blood Culture - Preliminary Blood - Venous NO GROWTH AFTER 1 DAY Anaerobic Blood Culture - Preliminary NO GROWTH AFTER 1 DAY 06/19/19 18:10 Aerobic Blood Culture - Preliminary Blood - Venous - Lab Draw NO GROWTH AFTER 1 DAY Anaerobic Blood Culture - Preliminary NO GROWTH AFTER 1 DAY Med Orders - Current: Current Medications Acetaminophen (Tylenol) 650 mg PO Q4H PRN PRN Reason: Pain (Mild 1-3)/fever Last Admin: 06/20/19 07:22 Dose: 650 mg Hydrocodone Bitart/Acetaminophen ([place] 325-5 Mg) 1 tab PO Q8H PRN PRN Reason: Pain Last Admin: 06/21/19 09:14 Dose: 1 tab Albuterol/Ipratropium (Duoneb 3.0-0.5 Mg/3 Ml) 3 ml NEB Q6HRRT [facility] Last Admin: 06/21/19 11:40 Dose: 3 ml Carvedilol (Coreg) 6.25 mg PO BID [facility] Last Admin: 06/21/19 08:36 Dose: 6.25 mg Cyanocobalamin (Vitamin B12) 500 mcg PO DAILY [facility] Last Admin: 06/21/19 08:36 Dose: 500 mcg Docusate Sodium (Colace) 100 mg PO DAILY PRN PRN Reason: Constipation Last Admin: 06/20/19 00:09 Dose: 100 mg Donepezil HCl (Aricept) 5 mg PO BEDTIME [facility] Last Admin: 06/20/19 20:53 Dose: 5 mg Escitalopram Oxalate (Lexapro) 5 mg PO BEDTIME [facility] Last Admin: 06/20/19 20:52 Dose: 5 mg Folic Acid (Folic Acid) 1 mg PO DAILY [facility] Last Admin: 06/21/19 08:35 Dose: 1 mg Sodium Chloride (Normal Saline) 1,000 mls @ 100 mls/hr IV ASDIRECTED [facility] Last Admin: 06/20/19 21:56 Dose: 100 mls/hr Piperacillin/Tazobactam/ (Dextrose 3.375 gm/ Premix) 50 mls @ 100 mls/hr IV Q6H [facility] Last Admin: 06/21/19 08:40 Dose: 100 mls/hr Vancomycin HCl 1 gm/ Sodium (Chloride) 250 mls @ 150 mls/hr IV Q12H [facility] Last Admin: 06/21/19 04:04 Dose: 150 mls/hr Lidocaine (Lidoderm 5%) 700 mg TOP DAILY [facility] Last Admin: 06/21/19 08:44 Dose: 700 mg Lorazepam (Ativan) 0.5 mg PO BID PRN PRN Reason: Anxiety Last Admin: 06/20/19 18:30 Dose: 0.5 mg Melatonin (Melatonin) 6 mg PO BEDTIME [facility] Last Admin: 06/20/19 20:56 Dose: 6 mg Methotrexate (Methotrexate) 15 mg PO Fr@1200 [facility] Miscellaneous Information (Remove Patch) 1 ea TRDERM 2100 [facility] Last Admin: 06/20/19 22:23 Dose: Not Given Morphine Sulfate (Morphine) 2 mg IVPUSH Q2H PRN PRN Reason: Pain (severe 7-10) Last Admin: 06/21/19 10:00 Dose: 2 mg Multivitamins/Minerals (Centrum) 1 tab PO DAILY [facility] Last Admin: 06/21/19 08:36 Dose: 1 tab Ondansetron HCl (Zofran) 4 mg IV Q6H PRN PRN Reason: Nausea/Vomiting Polyethylene Glycol (Miralax) 17 gm PO DAILY [facility] Last Admin: 06/21/19 08:35 Dose: 17 gm Simvastatin (Zocor) 40 mg PO BEDTIME [facility] Last Admin: 06/20/19 20:55 Dose: 40 mg Triamcinolone Acetonide (Triamcinolone Acetonide 0.1% Crm) 1 gm TOP BEDTIME [facility] Last Admin: 06/20/19 21:00 Dose: Not Given Vancomycin HCl (Pharmacy To Dose - Vancomycin) 1 dose .XX ASDIRECTED [facility] Discontinued Medications Acetaminophen (Tylenol) 650 mg PO Q4H PRN PRN Reason: Pain Amitriptyline HCl (Elavil) 25 mg PO BEDTIME [facility] Last Admin: 06/20/19 20:51 Dose: 25 mg Amlodipine Besylate (Norvasc) 5 mg PO DAILY [facility] Bisacodyl (Dulcolax) 10 mg RECTAL ONETIME ONE Stop: 06/20/19 10:41 Last Admin: 06/20/19 12:20 Dose: 10 mg Bisacodyl (Dulcolax) 10 mg RECTAL DAILY PRN PRN Reason: Constipation Carvedilol (Coreg) 6.25 mg PO BID [facility] Last Admin: 06/20/19 11:19 Dose: Not Given Ceftriaxone Sodium (Rocephin) 1 gm IVPUSH Q24H [facility] Last Admin: 06/19/19 20:45 Dose: 1 gm Gabapentin (Neurontin) 200 mg PO BID [facility] Last Admin: 06/20/19 20:55 Dose: 200 mg Vancomycin HCl 1 gm/ Sodium (Chloride) 250 mls @ 167 mls/hr IV ONETIME ONE Stop: 06/19/19 20:13 Last Admin: 06/19/19 20:54 Dose: 167 mls/hr Lorazepam (Ativan) 0.25 mg PO ONETIME PRN PRN Reason: Agitation Last Admin: 06/20/19 00:56 Dose: 0.25 mg Lorazepam (Ativan) 0.5 mg PO BID PRN PRN Reason: Anxiety Lorazepam (Ativan) 0.5 mg IVPUSH ONETIME ONE Stop: 06/20/19 09:50 Last Admin: 06/20/19 10:26 Dose: 0.5 mg Metformin HCl (Glucophage) 500 mg PO DAILY [facility] Morphine Sulfate (Morphine) 2 mg IVPUSH ONETIME ONE Stop: 06/19/19 23:01 Last Admin: 06/19/19 23:30 Dose: Not Given Non-Formulary Medication (Parab/Cet Alc/Stryl Alc/Pg/Sls [Cetaphil Daily Facial Cleanser]) 1 ml TP ASDIRECTED [place] Sodium Chloride (Saline Flush) 10 ml FLUSH Q8HR PRN PRN Reason: keep vein open - Exam Quality Assessment: Denies: Supplemental Oxygen, DVT Prophylaxis General: Reports: Alert, Cooperative, No Acute Distress. Denies: Oriented Neck: Reports: Supple Lungs: Reports: Clear to Auscultation, Normal Respiratory Effort Cardiovascular: Reports: Regular Rate, Regular Rhythm GI/Abdominal Exam: Normal Bowel Sounds, Soft Back Exam: Reports: Muscle Spasm (Pain lower lumbar). Denies: CVA Tenderness (L ), CVA Tenderness (R) Extremities: No Pedal Edema Skin: Reports: Warm, Dry, Intact Neurological: Denies: Normal Gait Psy/Mental Status: Reports: Alert. Denies: Agitated
[2019-06-22] MEDS ORDERED: Methotrexate 2.5 MG Tab PO SCH (12:00)
== END 2019-06-21 13:00 | DRG 194 ==
LOC: KA.ED 16:47 → KA.MS 18:39
PROVIDERS: ADMIT Physician Assistant Medical; ATTEND Family Medicine
DX: J18.9 Pneumonia, unspecified organism (principal); S22.32XA Fracture of one rib, left side, initial encounter for closed fracture; E87.0 Hyperosmolality and hypernatremia; R29.6 Repeated falls; H54.7 Unspecified visual loss; I25.10 Atherosclerotic heart disease of native coronary artery without angina pectoris; E78.00 Pure hypercholesterolemia, unspecified; Z66 Do not resuscitate; I25.2 Old myocardial infarction; Z86.010 Personal history of colon polyps; R40.2412 Glasgow coma scale score 13-15, at arrival to emergency department; I10 Essential (primary) hypertension; M10.9 Gout, unspecified; F03.90 Unspecified dementia, unspecified severity, without behavioral disturbance, psychotic disturbance, mood disturbance, and anxiety; G47.00 Insomnia, unspecified; F41.9 Anxiety disorder, unspecified; F32.9 Major depressive disorder, single episode, unspecified; L40.9 Psoriasis, unspecified; E11.9 Type 2 diabetes mellitus without complications; Z98.62 Peripheral vascular angioplasty status; E53.8 Deficiency of other specified B group vitamins; Z79.899 Other long term (current) drug therapy; E86.0 Dehydration; R13.10 Dysphagia, unspecified; M54.9 Dorsalgia, unspecified; G89.29 Other chronic pain; K59.00 Constipation, unspecified; W19.XXXA Unspecified fall, initial encounter; Y92.89 Other specified places as the place of occurrence of the external cause; Y93.89 Activity, other specified; Z79.84 Long term (current) use of oral hypoglycemic drugs; Z98.49 Cataract extraction status, unspecified eye; Z87.891 Personal history of nicotine dependence; Z79.2 Long term (current) use of antibiotics
CPT/HCPCS: 36415; 70450; 71046; 72125; 80053; 81001; 82550; 82553; 83036; 83605; 84484; 85025; 87040; 93005; 94640; 99284; 99285-25; A9270-GY; J0696; J2060; J2270; J2543; J3370; J7030; J7050; J7620-GY